=== PATIENT | male | born 1950 | race Caucasian/White ===

== ENCOUNTER 2018-05-25 16:29 | Inpatient (IN) | payer MEDICARE, OTHER ==
[~2018-05-25] VITALS: Ht 172.7 cm; Wt 63.5 kg
[~2018-05-25 16:29] MED LIST: CLINDAMYCIN HC300 MG ORAL; KEFLEX500 MG ORAL; LEVAQUIN500 MG ORAL; METHADONE HCL10 MG PO; METRONIDAZOLE500 MG ORAL; TRAMADOL HCL50 MG ORAL; ULTRAM50 MG ORAL
[2018-05-25 16:40] VITALS: BP 97/58
[2018-05-25] MEDS ORDERED: Tetanus/Diptheria/Pertussis Vaccine 0.5ml Syr IM ONE (17:00)
[2018-05-25] MEDS ORDERED: Vancomycin 1 GM in NS 275 ML IV ONE (17:15)
[2018-05-25 18:08] LABS: ANION GAP 9 mmol/L (5-15); BLOOD UREA NITROGEN 35 mg/dL (7-18); CALCIUM 9.1 MG/DL (8.5-10.1); CARBON DIOXIDE 26 MMOL/L (21-32); CHLORIDE 104 MMOL/L (98-107); CREATININE 1.2 MG/DL (0.55-1.30); POTASSIUM 4.9 MMOL/L (3.5-5.1); SODIUM 139 MMOL/L (136-145)
[2018-05-25 18:13] LABS: ALANINE AMINOTRANSFERASE 20 U/L (12-78); ALBUMIN 2.8 G/DL (3.4-5.0); ALBUMIN/GLOBULIN RATIO 0.6 (1.0-2.7); ALKALINE PHOSPHATASE 78 U/L (46-116); ASPARTATE AMINO TRANSFERASE 23 U/L (15-37); BASOPHILS % (AUTO) 1.8 % (0.0-2.0); BILIRUBIN,TOTAL 0.6 MG/DL (0.2-1.0); EOSINOPHILS % (AUTO) 1.4 % (0.0-3.0); HEMOGLOBIN 13.3 G/DL (14.2-18.0); LYMPHOCYTES % (AUTO) 11.3 % (20.0-45.0); MEAN CORPUSCULAR VOLUME 81 FL (80-99); MONOCYTES % (AUTO) 8.3 % (1.0-10.0); NEUTROPHILS % (AUTO) 77.2 % (45.0-75.0); PLATELET COUNT 146 K/UL (150-450); RED BLOOD COUNT 4.84 M/UL (4.70-6.10); RED CELL DISTRIBUTION WIDTH 11.6 % (11.6-14.8); WHITE BLOOD COUNT 7.7 K/UL (4.8-10.8)
--- NOTE | 2018-05-25 18:47 | Consultation ---
History of Present Illness General Date patient seen: May 25, 2018 Chief Complaint: Skin Rash/Abscess Reason for Consultation: left buttock abscess Present Illness HPI 67 year old male IVDA in a Methadone clinic program presented to ED with worsening left buttock pain. States 3 days ago using Heroin and injected to left buttock. Since worsening pain noted. Came to ED for evaluation. Noted to have large fluctuant painful abscess. surgery called to evaluate and assist with care and management. patient seen, chart reviewed, patient examined. pain. no n/v/f/c. hx of prior abscess years ago requiring I&D. Allergies: Coded Allergies: PENICILLINS (Unverified Adverse Reaction, Severe, 05/02/14) Medication History Scheduled Clindamycin Hcl (Clindamycin Hcl), 300 MG ORAL THREE TIMES A DAY Levofloxacin* (Levaquin*), 500 MG ORAL DAILY, (Reported) Methadone Hcl* (Methadone*), 85 MG PO DAILY, (Reported) Metronidazole* (Flagyl*), 500 MG ORAL EVERY 8 HOURS, (Reported) Scheduled PRN Tramadol Hcl (Ultram*), 50 MG ORAL Q4H PRN for For Pain, (Reported) Tramadol Hcl* (Ultram*), 50 MG ORAL THREE TIMES A DAY PRN for For Pain, ( Reported) Patient History History Provided By: Patient, Medical Record, PMD Healthcare decision maker Resuscitation status Advanced Directive on File Past Medical/Surgical History Past Medical/Surgical History: (1) Abscess of buttock, right (2) Cellulitis and abscess (3) Cellulitis and abscess (4) Muscle spasm of back (5) Cellulitis of thumb (6) Cellulitis and abscess Review of Systems All Other Systems: negative except mentioned in HPI Physical Exam General Appearance: no apparent distress Lines, tubes and drains: peripheral HEENT: atraumatic, mucous membranes moist Neck: normal inspection Respiratory/Chest: normal breath sounds, no respiratory distress, no accessory muscle use Cardiovascular/Chest: normal peripheral pulses, normal rate, regular rhythm Abdomen: normal bowel sounds, non tender, soft, no organomegaly, no mass Extremities: normal range of motion, non-tender, normal inspection Skin Exam: other - large area >15cm x 15cm left buttock lateral abscess with large area of fluctnace and necrosis noted at skin injection site. Neurologic: alert, oriented x 3 Last 24 Hour Vital Signs Date Time Temp Pulse Resp B/P (MAP) Pulse Ox O2 Delivery O2 Flow Rate FiO2 05/25/18 16:40 98.1 48 16 97/58 99 Room Air 05/25/18 16:40 98.1 48 16 97/58 99 Room Air Laboratory Tests Test 05/25/18 17:22 White Blood Count 7.7 K/UL (4.8-10.8) Red Blood Count 4.84 M/UL (4.70-6.10) Hemoglobin 13.3 G/DL (14.2-18.0) L Hematocrit 39.0 % (42.0-52.0) L Mean Corpuscular Volume 81 FL (80-99) Mean Corpuscular Hemoglobin 27.4 PG (27.0-31.0) Mean Corpuscular Hemoglobin Concent 34.1 G/DL (32.0-36.0) Red Cell Distribution Width 11.6 % (11.6-14.8) Platelet Count 146 K/UL (150-450) L Mean Platelet Volume 5.4 FL (6.5-10.1) L Neutrophils (%) (Auto) 77.2 % (45.0-75.0) H Lymphocytes (%) (Auto) 11.3 % (20.0-45.0) L Monocytes (%) (Auto) 8.3 % (1.0-10.0) Eosinophils (%) (Auto) 1.4 % (0.0-3.0) Basophils (%) (Auto) 1.8 % (0.0-2.0) Sodium Level 139 MMOL/L (136-145) Potassium Level 4.9 MMOL/L (3.5-5.1) Chloride Level 104 MMOL/L (98-107) Carbon Dioxide Level 26 MMOL/L (21-32) Anion Gap 9 mmol/L (5-15) Blood Urea Nitrogen 35 mg/dL (7-18) H Creatinine 1.2 MG/DL (0.55-1.30) Estimat Glomerular Filtration Rate > 60 mL/min (>60) Glucose Level 100 MG/DL (74-106) Lactic Acid Level 0.80 mmol/L (0.4-2.0) Calcium Level 9.1 MG/DL (8.5-10.1) Total Bilirubin 0.6 MG/DL (0.2-1.0) Aspartate Amino Transf (AST/SGOT) 23 U/L (15-37) Alanine Aminotransferase (ALT/SGPT) 20 U/L (12-78) Alkaline Phosphatase 78 U/L (46-116) Total Protein 7.6 G/DL (6.4-8.2) Albumin 2.8 G/DL (3.4-5.0) L Globulin 4.8 g/dL Albumin/Globulin Ratio 0.6 (1.0-2.7) L Height (Feet): 5 Height (Inches): 11.00 Weight (Pounds): 140 Medications Current Medications Medications (Trade) Dose Ordered Sig/Rafita Route PRN Reason Start Time Stop Time Status Last Admin Dose Admin Vancomycin HCl 1 gm/Sodium Chloride 275 ml @ 183.3 mls/ hr ONCE ONCE IV 05/25/18 17:15 05/25/18 18:45 05/25/18 18:12 Assessment/Plan Problem List: (1) Left buttock abscess Assessment & Plan: Large left buttock abscess s/p IVDA >15cm area of circumference/fluctuance. area of necrosis at skin injection site. recommend I&D consent obtained see procedure note I&D performed. cultures sent admit for IV abx f/u cultures packing and dressing BID thank you ICD Codes: L02.31 - Cutaneous abscess of buttock SNOMED: [id number] Anthony Gamino May 25, 2018 18:47
[2018-05-25] MEDS ORDERED: Morphine Sulfate 4mg/ml Inj (IV/IM USE ONLY) IVP ONE (20:00)
--- NOTE | 2018-05-25 21:00 | Operative Note - Dictated ---
DATE OF OPERATION: 05/25/2018 PREOPERATIVE DIAGNOSIS: Large left buttock abscess. POSTOPERATIVE DIAGNOSIS: Large deep left buttock abscess. OPERATION PERFORMED: Incision and drainage of deep left buttock abscess. ATTENDING SURGEON: Anthony Gamino M.D. HYDROCHLORIC ACID OPERATOR: None. ANESTHESIOLOGIST: Not applicable. ANESTHESIA: 1% lidocaine with epinephrine. ESTIMATED BLOOD LOSS: Minimal. IV FLUIDS: Not applicable. WOUND CLASSIFICATION: Class III. SPECIMENS: Culture sent. COMPLICATIONS: None. DRAINS: None. DRESSINGS: Packing and dressing. INDICATIONS FOR PROCEDURE: This 67-year-old male, known IVDA, in the methadone clinic who states that approximately 3 days ago, he injected heroin into his left buttock region and since has developed a worsening pain and infection, likely abscess. He has history of such events requiring I and D in the past. He came to the emergency department for evaluation and was noted to have a large area of fluctuance in the left buttock, which was significantly concerning, very tender and therefore, Surgery was called for evaluation at which time the patient was seen and a large abscess was identified and I and D was indicated and recommended. Risks, benefits, and alternatives were discussed with the patient in detail who consented to procedure. OPERATIVE NOTE: The patient was made comfortable at the bedside and turned on the right lateral decubitus position. The left buttock was prepped and draped in standard surgical fashion. Local anesthetic was infiltrated in the proposed incision site, which encompassed the injection site at the area of maximal fluctuance. Once proper anesthetic effect was achieved, a cruciate incision was made and approximately over 150 mL of purulent fluid was evacuated. The abscess was deep down to the muscles and in between the gluteus muscles, intermuscular as well. There was a significant pocket developed by the abscess. Once evacuated, the abscess was irrigated with copious amounts of sterile saline until clear. At this time, gauze packing and dressings were applied. The patient tolerated the procedure well and will be admitted for further care and management. Anthony Gamino M.D. DR: NILDA JOB#: [id number] CC:
[2018-05-25 21:20] VITALS: BP 124/68
--- NOTE | 2018-05-25 22:25 | Emergency Room Report ---
History of Present Illness General Chief Complaint: Skin Rash/Abscess Source: Patient, Medical Record, PMD Present Illness HPI 67-year-old male presents to the emergency department complaining of 10 out of 10 in severity tenderness, swelling, erythema of the day been progressive over the course of 3 days localized to the left buttocks. Patient reports symptoms are at the site of previous heroin injection. He reports history of IV drug use and reports opiate dependence. Patient is currently attending methadone clinic. Patient denies fevers or chills he reports a history of abscess that required drainage in the past. Pt. is not knowledgeable as to when he last received a tetanus vaccination Allergies: Coded Allergies: PENICILLINS (Unverified Adverse Reaction, Severe, 05/02/14) Patient History Past Medical History: see triage record, other - IVDU, Past Surgical History: none Pertinent Family History: none Social History: Reports: drug use - IVDU- Opiates Reviewed Nursing Documentation: PMH: Agreed; PSxH: Agreed Nursing Documentation-PMH Past Medical History: No History, Except For Hx Cancer: No Hx Gastrointestinal Problems: No Hx Neurological Problems: No Review of Systems All Other Systems: negative except mentioned in HPI Physical Exam Vital Signs Date Time Temp Pulse Resp B/P (MAP) Pulse Ox O2 Delivery O2 Flow Rate FiO2 05/25/18 16:40 98.1 48 16 97/58 99 Room Air Sp02 EP Interpretation: reviewed, normal General Appearance: alert, GCS 15, non-toxic, mild distress Eyes: bilateral eye normal inspection, bilateral eye PERRL ENT: hearing grossly normal, normal voice Neck: normal inspection Respiratory: lungs clear, normal breath sounds Cardiovascular #1: normal inspection, regular rate, rhythm Musculoskeletal: gait/station normal Neurologic: oriented x3, responsive, normal gait Psychiatric: judgement/insight normal, mood/affect normal Skin: other - large fluctuant left buttock abscess with associated necrosis noted at skin injection site Lymphatic: no adenopathy Medical Decision Making PA Attestation Dr. Monte is my supervising Physician whom patient management has been discussed with. Diagnostic Impression: Primary Impression: Cellulitis and abscess Additional Impressions: Left buttock abscess Opiate dependence, continuous History of intravenous drug abuse ER Course 67-year-old male presents to the emergency department complaining of 10 out of 10 in severity tenderness, swelling, erythema of the day been progressive over the course of 3 days localized to the left buttocks. Patient reports symptoms are at the site of previous heroin injection. He reports history of IV drug use and reports opiate dependence. Patient is currently attending methadone clinic. Patient denies fevers or chills he reports a history of abscess that required drainage in the past. Pt. is not knowledgeable as to when he last received a tetanus vaccination Ddx considered but are not limited to ST necrosis, cellulitis, abscess, necrotizing fasciitis, insect bite, sepsis just to name a few. Vital signs: are WNL, pt. is afebrile H&PE are most consistent with large left buttock abscess ORDERS: -CBC & CMP: Unremarkable, normal renal function - Blood cultures: Pending -Type and Screen: B Positive - Body Fluid Culture- specimen collected from abscess sent for culture.- pending ED INTERVENTIONS: -Vancomycin 1g IV - Tetanus vaccination is administered. - Surgical Consult- Dr. Gamino for I & D DISPOSITION: at this time pt. will be admitted to Dr. Saunders for left buttock abscess requiring I &D and IV abx. Dr. Saunders agreed to admit the pt. and to continue pt. care management. Labs Test 05/25/18 17:22 White Blood Count 7.7 K/UL (4.8-10.8) Red Blood Count 4.84 M/UL (4.70-6.10) Hemoglobin 13.3 G/DL (14.2-18.0) Hematocrit 39.0 % (42.0-52.0) Mean Corpuscular Volume 81 FL (80-99) Mean Corpuscular Hemoglobin 27.4 PG (27.0-31.0) Mean Corpuscular Hemoglobin Concent 34.1 G/DL (32.0-36.0) Red Cell Distribution Width 11.6 % (11.6-14.8) Platelet Count 146 K/UL (150-450) Mean Platelet Volume 5.4 FL (6.5-10.1) Neutrophils (%) (Auto) 77.2 % (45.0-75.0) Lymphocytes (%) (Auto) 11.3 % (20.0-45.0) Monocytes (%) (Auto) 8.3 % (1.0-10.0) Eosinophils (%) (Auto) 1.4 % (0.0-3.0) Basophils (%) (Auto) 1.8 % (0.0-2.0) Sodium Level 139 MMOL/L (136-145) Potassium Level 4.9 MMOL/L (3.5-5.1) Chloride Level 104 MMOL/L (98-107) Carbon Dioxide Level 26 MMOL/L (21-32) Anion Gap 9 mmol/L (5-15) Blood Urea Nitrogen 35 mg/dL (7-18) Creatinine 1.2 MG/DL (0.55-1.30) Estimat Glomerular Filtration Rate > 60 mL/min (>60) Glucose Level 100 MG/DL (74-106) Lactic Acid Level 0.80 mmol/L (0.4-2.0) Calcium Level 9.1 MG/DL (8.5-10.1) Total Bilirubin 0.6 MG/DL (0.2-1.0) Aspartate Amino Transf (AST/SGOT) 23 U/L (15-37) Alanine Aminotransferase (ALT/SGPT) 20 U/L (12-78) Alkaline Phosphatase 78 U/L (46-116) Total Protein 7.6 G/DL (6.4-8.2) Albumin 2.8 G/DL (3.4-5.0) Globulin 4.8 g/dL Albumin/Globulin Ratio 0.6 (1.0-2.7) Last Vital Signs Date Time Temp Pulse Resp B/P (MAP) Pulse Ox O2 Delivery O2 Flow Rate FiO2 05/25/18 16:40 98.1 48 16 97/58 99 Room Air Disposition: ADMITTED INPATIENT Condition: Serious Physician Consult: Dr. Gamino Referrals: [facility],REFERRING (PCP) Kristina Garcia May 25, 2018 22:25
[2018-05-25] MEDS ORDERED: Milk of Magnesia 30ml Ud ORAL PRN (22:30)
[2018-05-25 23:40] VITALS: BP 129/70
[2018-05-26 04:00] VITALS: BP 91/48
[2018-05-26] MEDS: Vancomycin 750mg/NS 250ml 250 ML IVPB SCH ×2 (05:34→17:33)
[2018-05-26] MEDS ORDERED: metroNIDAZOLE 500mg tab ORAL SCH (06:00)
--- NOTE | 2018-05-26 07:00 | History and Physical Report ---
DATE OF ADMISSION: 05/26/2018 CHIEF COMPLAINT: Left buttock abscess. HISTORY OF PRESENT ILLNESS: This is a 67-year-old male. He has a prior history of heroin use used little over a week ago and developed an abscess in the left buttock. He presented to the emergency room. He was noted to have a large amount of induration and swelling, underwent incision and drainage that revealed 250 mL of pus. It was debrided. He is now admitted for further evaluation and care. PAST MEDICAL HISTORY: History of heroin abuse. PAST SURGICAL HISTORY: None. CURRENT MEDICATIONS: Only methadone. FAMILY HISTORY: Noncontributory. SOCIAL HISTORY: Negative for tobacco or ethanol. The patient has been clean from heroin except for once in the last 4 years. REVIEW OF SYSTEMS: Negative except for left buttock pain. PHYSICAL EXAMINATION: VITAL SIGNS: Temperature 98 degrees, blood pressure 110/70, pulse 80, and respirations 20. GENERAL: The patient is a thin male, in no apparent distress. HEART: Regular. LUNGS: Clear. ABDOMEN: Soft. EXTREMITIES: There is a bandage over the left buttock. There is some induration and swelling noted. LABORATORY DATA: Reviewed. ASSESSMENT: This is a pleasant 67-year-old male with a prior history of heroin abuse admitted with a left buttock abscess for injected heroin. He is now status post incision and drainage. PLAN: Intravenous antibiotics. Follow cultures. Surgery follow up. ID consultation. Quintin Saunders M.D. DR: LÓPEZ JOB#: [id number] CC:
[2018-05-26 08:38] VITALS: BP 105/60
[2018-05-26] MEDS: Heparin 5000 units/ml inj SUBQ SCH ×2 (09:00→20:38)
--- NOTE | 2018-05-26 09:29 | General Surgery Progress Note ---
General Surgery-Progress Note Subjective Additional Comments no acute events. improved. no n/v/f/c. wound dressings changed Objective Last 24 Hour Vital Signs Date Time Temp Pulse Resp B/P (MAP) Pulse Ox O2 Delivery O2 Flow Rate FiO2 05/26/18 08:38 98.1 51 18 105/60 (75) 94 05/26/18 04:00 98.2 48 19 91/48 (62) 97 05/26/18 00:48 Room Air 05/26/18 00:00 98.1 53 16 129/70 96 Room Air 05/25/18 23:40 98.4 53 17 129/70 99 Room Air 05/25/18 21:20 97.9 60 18 124/68 99 Room Air 05/25/18 16:40 98.1 48 16 97/58 99 Room Air 05/25/18 16:40 98.1 48 16 97/58 99 Room Air I&O Intake and Output 05/25/18 05/26/18 18:59 06:59 Intake Total 100 ml Output Total 0 ml Balance 0 ml 100 ml Intake IV Total 100 ml Output Urine Total 0 ml # Voids 1 Dressing: saturated Wound: clean, other Drains: none Cardiovascular: RSR Respiratory: clear Abdomen: soft, flat, non-tender, present bowel sounds Extremities: no tenderness, no cyanosis, other Laboratory Tests Test 05/25/18 17:22 White Blood Count 7.7 K/UL (4.8-10.8) Red Blood Count 4.84 M/UL (4.70-6.10) Hemoglobin 13.3 G/DL (14.2-18.0) L Hematocrit 39.0 % (42.0-52.0) L Mean Corpuscular Volume 81 FL (80-99) Mean Corpuscular Hemoglobin 27.4 PG (27.0-31.0) Mean Corpuscular Hemoglobin Concent 34.1 G/DL (32.0-36.0) Red Cell Distribution Width 11.6 % (11.6-14.8) Platelet Count 146 K/UL (150-450) L Mean Platelet Volume 5.4 FL (6.5-10.1) L Neutrophils (%) (Auto) 77.2 % (45.0-75.0) H Lymphocytes (%) (Auto) 11.3 % (20.0-45.0) L Monocytes (%) (Auto) 8.3 % (1.0-10.0) Eosinophils (%) (Auto) 1.4 % (0.0-3.0) Basophils (%) (Auto) 1.8 % (0.0-2.0) Sodium Level 139 MMOL/L (136-145) Potassium Level 4.9 MMOL/L (3.5-5.1) Chloride Level 104 MMOL/L (98-107) Carbon Dioxide Level 26 MMOL/L (21-32) Anion Gap 9 mmol/L (5-15) Blood Urea Nitrogen 35 mg/dL (7-18) H Creatinine 1.2 MG/DL (0.55-1.30) Estimat Glomerular Filtration Rate > 60 mL/min (>60) Glucose Level 100 MG/DL (74-106) Lactic Acid Level 0.80 mmol/L (0.4-2.0) Calcium Level 9.1 MG/DL (8.5-10.1) Total Bilirubin 0.6 MG/DL (0.2-1.0) Aspartate Amino Transf (AST/SGOT) 23 U/L (15-37) Alanine Aminotransferase (ALT/SGPT) 20 U/L (12-78) Alkaline Phosphatase 78 U/L (46-116) Total Protein 7.6 G/DL (6.4-8.2) Albumin 2.8 G/DL (3.4-5.0) L Globulin 4.8 g/dL Albumin/Globulin Ratio 0.6 (1.0-2.7) L Plan Problems: (1) Left buttock abscess Assessment & Plan: Large left buttock abscess s/p IVDA >15cm area of circumference/fluctuance. area of necrosis at skin injection site. s/p I&D see report diet as tolerated pain management IV abx f/u cultures packing and dressing BID thank you Anthony Gamino May 26, 2018 09:29
[2018-05-26 12:00] VITALS: BP_SYST 109; BP_SYST 159; BP_DIAS 64
[2018-05-26] MEDS ORDERED: Tubing IV Secondary IV ONE (13:12)
[2018-05-26] MEDS ORDERED: NS 275ml ONE (13:12)
--- NOTE | 2018-05-26 14:59 | Cardiology Report ---
APPROVED REPORT EKG Measurement Heart [id number] DC [id number] Sinus bradycardia Otherwise normal ECG
[2018-05-26 15:47] VITALS: BP 118/70
[2018-05-26 20:00] VITALS: BP 109/59
[2018-05-27] VITALS: BP 131/72
[2018-05-27 04:00] VITALS: BP 116/59
[2018-05-27 04:55] LABS: BASOPHILS % (AUTO) 1.2 % (0.0-2.0); EOSINOPHILS % (AUTO) 2.5 % (0.0-3.0); HEMATOCRIT 41.1 % (42.0-52.0); LYMPHOCYTES % (AUTO) 22.9 % (20.0-45.0); MEAN CORPUSCULAR VOLUME 80 FL (80-99); MONOCYTES % (AUTO) 9.1 % (1.0-10.0); NEUTROPHILS % (AUTO) 64.2 % (45.0-75.0); PLATELET COUNT 178 K/UL (150-450); RED BLOOD COUNT 5.14 M/UL (4.70-6.10); WHITE BLOOD COUNT 5.4 K/UL (4.8-10.8)
[2018-05-27 05:11] LABS: ANION GAP 6 mmol/L (5-15); BLOOD UREA NITROGEN 22 mg/dL (7-18); CALCIUM 8.9 MG/DL (8.5-10.1); CARBON DIOXIDE 27 MMOL/L (21-32); CHLORIDE 105 MMOL/L (98-107); POTASSIUM 4.3 MMOL/L (3.5-5.1); SODIUM 138 MMOL/L (136-145)
[2018-05-27] MEDS: Vancomycin 750mg/NS 250ml 250 ML IVPB SCH ×2 (06:06→16:43)
[2018-05-27 08:00] VITALS: BP 107/67
--- NOTE | 2018-05-27 08:40 | General Progress Note ---
Assessment/Plan Problem List: (1) Cellulitis and abscess ICD Codes: L03.90 - Cellulitis, unspecified SNOMED: 45661703 (2) Abscess of buttock, right ICD Codes: L03.317 - Cellulitis of buttock SNOMED: 90816774 Status: stable Assessment/Plan abx follow up cultures pain rx id eval pending Subjective ROS Limited/Unobtainable: No Constitutional: Reports: malaise, weakness HEENT: Reports: no symptoms Cardiovascular: Reports: no symptoms Respiratory: Reports: no symptoms Gastrointestinal/Abdominal: Reports: no symptoms Genitourinary: Reports: no symptoms Neurologic/Psychiatric: Reports: no symptoms Endocrine: Reports: no symptoms Hematologic/Lymphatic: Reports: no symptoms Allergies: Coded Allergies: PENICILLINS (Unverified Adverse Reaction, Severe, 05/02/14) All Systems: reviewed and negative except above Subjective stable. no events. pain controlled. cultured with GPC Objective Last 24 Hour Vital Signs Date Time Temp Pulse Resp B/P (MAP) Pulse Ox O2 Delivery O2 Flow Rate FiO2 05/27/18 08:00 97.9 54 18 107/67 (80) 95 05/27/18 04:00 97.7 48 20 116/59 (78) 98 05/27/18 00:00 97.7 46 18 131/72 (91) 95 05/26/18 21:00 Room Air 05/26/18 20:00 98.1 52 18 109/59 (76) 96 05/26/18 15:47 98.1 51 18 118/70 (86) 94 05/26/18 12:00 98.4 54 18 159/64 (95) 94 05/26/18 12:00 98.4 54 18 109/64 (79) 97 05/26/18 09:00 Room Air Intake and Output 05/26/18 05/27/18 18:59 06:59 Intake Total 867 ml 403 ml Output Total 800 ml 275 ml Balance 67 ml 128 ml Intake Oral 600 ml 120 ml IV Total 267 ml 283 ml Output Urine Total 800 ml 275 ml # Voids 1 # Bowel Movements 1 Laboratory Tests 05/27/18 04:30: White Blood Count 5.4, Red Blood Count 5.14, Hemoglobin 14.0L, Hematocrit 41.1L , Mean Corpuscular Volume 80, Mean Corpuscular Hemoglobin 27.1, Mean Corpuscular Hemoglobin Concent 34.0, Red Cell Distribution Width 12.0, Platelet Count 178, Mean Platelet Volume 5.9L, Neutrophils (%) (Auto) 64.2, Lymphocytes ( %) (Auto) 22.9, Monocytes (%) (Auto) 9.1, Eosinophils (%) (Auto) 2.5, Basophils (%) (Auto) 1.2, Sodium Level 138, Potassium Level 4.3, Chloride Level 105, Carbon Dioxide Level 27, Anion Gap 6, Blood Urea Nitrogen 22H, Creatinine 1.0, Estimat Glomerular Filtration Rate > 60, Glucose Level 93, Calcium Level 8.9, Vancomycin Level Trough 11.8 Height (Feet): 5 Height (Inches): 8.00 Weight (Pounds): 140 General Appearance: WD/WN Neck: supple Cardiovascular: regular rhythm Respiratory/Chest: lungs clear Abdomen: normal bowel sounds, non tender, soft, no organomegaly Edema: no edema noted Arm (L), no edema noted Arm (R), no edema noted Leg (L), no edema noted Leg (R), no edema noted Pedal (L), no edema noted Pedal (R), no edema noted Generalized Quintin Saunders MD May 27, 2018 08:40
[2018-05-27] MEDS ORDERED: Tubing IV Secondary IV ONE (08:44)
[2018-05-27] MEDS: Heparin 5000 units/ml inj SUBQ SCH ×2 (08:46→21:00)
--- NOTE | 2018-05-27 11:34 | Infectious Diseases Prog Note ---
Assessment/Plan Assessment/Plan Full consult to follow: A) 1) left buttock abscess 2) s/p I/D 3) pmh noted 4) allergies - pcn P) 1) vancomycin, ciprofloxacin 2) check surgical culture 3) monitor labs 4) thank you Subjective Allergies: Coded Allergies: PENICILLINS (Unverified Adverse Reaction, Severe, 05/02/14) Objective Vital Signs Last 24 Hour Vital Signs Date Time Temp Pulse Resp B/P (MAP) Pulse Ox O2 Delivery O2 Flow Rate FiO2 05/27/18 09:00 Room Air 05/27/18 08:00 97.9 54 18 107/67 (80) 95 05/27/18 04:00 97.7 48 20 116/59 (78) 98 05/27/18 00:00 97.7 46 18 131/72 (91) 95 05/26/18 21:00 Room Air 05/26/18 20:00 98.1 52 18 109/59 (76) 96 05/26/18 15:47 98.1 51 18 118/70 (86) 94 05/26/18 12:00 98.4 54 18 159/64 (95) 94 05/26/18 12:00 98.4 54 18 109/64 (79) 97 Height (Feet): 5 Height (Inches): 8.00 Weight (Pounds): 140 Microbiology Date/Time Source Procedure Growth Status 05/25/18 17:27 Blood Blood Culture - Preliminary NO GROWTH AFTER 24 HOURS Resulted 05/25/18 17:15 Blood Blood Culture - Preliminary NO GROWTH AFTER 24 HOURS Resulted 05/25/18 18:00 Body Fluid Abscess Gram Stain - Final Resulted 05/25/18 18:00 Body Fluid Abscess Body Fluid Culture Pending Resulted Laboratory Tests Test 05/27/18 04:30 White Blood Count 5.4 K/UL (4.8-10.8) Red Blood Count 5.14 M/UL (4.70-6.10) Hemoglobin 14.0 G/DL (14.2-18.0) L Hematocrit 41.1 % (42.0-52.0) L Mean Corpuscular Volume 80 FL (80-99) Mean Corpuscular Hemoglobin 27.1 PG (27.0-31.0) Mean Corpuscular Hemoglobin Concent 34.0 G/DL (32.0-36.0) Red Cell Distribution Width 12.0 % (11.6-14.8) Platelet Count 178 K/UL (150-450) Mean Platelet Volume 5.9 FL (6.5-10.1) L Neutrophils (%) (Auto) 64.2 % (45.0-75.0) Lymphocytes (%) (Auto) 22.9 % (20.0-45.0) Monocytes (%) (Auto) 9.1 % (1.0-10.0) Eosinophils (%) (Auto) 2.5 % (0.0-3.0) Basophils (%) (Auto) 1.2 % (0.0-2.0) Sodium Level 138 MMOL/L (136-145) Potassium Level 4.3 MMOL/L (3.5-5.1) Chloride Level 105 MMOL/L (98-107) Carbon Dioxide Level 27 MMOL/L (21-32) Anion Gap 6 mmol/L (5-15) Blood Urea Nitrogen 22 mg/dL (7-18) H Creatinine 1.0 MG/DL (0.55-1.30) Estimat Glomerular Filtration Rate > 60 mL/min (>60) Glucose Level 93 MG/DL (74-106) Calcium Level 8.9 MG/DL (8.5-10.1) Vancomycin Level Trough 11.8 ug/mL (5.0-12.0) Current Medications Medications (Trade) Dose Ordered Sig/Rafita Route PRN Reason Start Time Stop Time Status Last Admin Dose Admin Acetaminophen (Tylenol) 650 mg Q4H PRN ORAL Mild Pain/Temp > 100.5 05/25/18 22:30 06/24/18 22:29 05/25/18 22:56 Heparin Sodium (Porcine) (Heparin 5000 units/ml) 5,000 units EVERY 12 HOURS SUBQ 05/26/18 09:00 06/25/18 08:59 05/26/18 20:38 Hydromorphone HCl (Dilaudid) 2 mg Q4H PRN IVP Severe Pain (Pain Scale 7-10) 05/25/18 22:30 06/01/18 22:29 05/27/18 04:09 Magnesium Hydroxide (Mom) 30 ml DAILYPRN PRN ORAL Constipation 05/25/18 22:30 06/24/18 22:29 Methadone HCl (Methadone HCl) 80 mg DAILY ORAL 05/27/18 12:00 06/03/18 11:59 Metronidazole 100 ml @ 100 mls/hr Q8H IVPB 05/26/18 02:00 06/02/18 01:59 05/27/18 08:46 Ondansetron HCl (Zofran) 4 mg Q6H PRN IVP Nausea & Vomiting 05/25/18 22:30 06/24/18 22:29 05/25/18 22:57 Vancomycin HCl (Vanco rx to dose) 1 ea DAILY PRN MISC Per rx protocol 05/25/18 22:30 06/24/18 22:29 Vancomycin/Sodium Chloride 250 ml @ 167 mls/hr Q12H IVPB 05/26/18 05:00 05/31/18 04:59 05/27/18 06:06 Philip Okeefe MD May 27, 2018 11:34
[2018-05-27 12:00] VITALS: BP 119/70
--- NOTE | 2018-05-27 12:35 | General Progress Note ---
Progress Note Progress Note Surgery: doing well.. improving. no n/v/f/c. labs okay wound improving. edema improved. packing and dressings changed -cont with BID packing and dressing -d/c planning will need home wound care thank you Anthony Gamino May 27, 2018 12:35
[2018-05-27 16:00] VITALS: BP 124/72
[2018-05-27 20:00] VITALS: BP 134/73
[2018-05-28] VITALS: BP 133/76
[2018-05-28 04:00] VITALS: BP 125/86
[2018-05-28] MEDS: Vancomycin 750mg/NS 250ml 250 ML IVPB SCH ×2 (06:05→16:52)
[2018-05-28] MEDS: HYDROmorphone 4mg tab ORAL PRN (07:50)
[2018-05-28 08:00] VITALS: BP 136/75
--- NOTE | 2018-05-28 08:18 | General Progress Note ---
Assessment/Plan Problem List: (1) Cellulitis and abscess ICD Codes: L03.90 - Cellulitis, unspecified SNOMED: 22869341 (2) Abscess of buttock, right ICD Codes: L03.317 - Cellulitis of buttock SNOMED: 66260103 Status: stable Assessment/Plan abx follow up cultures pain rx id eval appreciated Subjective ROS Limited/Unobtainable: No Constitutional: Reports: malaise, weakness HEENT: Reports: no symptoms Cardiovascular: Reports: no symptoms Respiratory: Reports: no symptoms Gastrointestinal/Abdominal: Reports: no symptoms Genitourinary: Reports: no symptoms Neurologic/Psychiatric: Reports: no symptoms Endocrine: Reports: no symptoms Hematologic/Lymphatic: Reports: no symptoms Allergies: Coded Allergies: PENICILLINS (Unverified Adverse Reaction, Severe, 05/02/14) All Systems: reviewed and negative except above Subjective stable. no events. pain controlled. cultured with staph aureus Objective Last 24 Hour Vital Signs Date Time Temp Pulse Resp B/P (MAP) Pulse Ox O2 Delivery O2 Flow Rate FiO2 05/28/18 04:00 98.3 50 20 125/86 (99) 93 05/28/18 00:00 99.1 50 20 133/76 (95) 93 05/27/18 21:00 Room Air 05/27/18 20:00 99.1 54 19 134/73 (93) 100 05/27/18 16:00 98.1 81 16 124/72 (89) 99 05/27/18 12:00 97.9 46 16 119/70 (86) 97 05/27/18 09:00 Room Air Intake and Output 05/27/18 05/28/18 19:00 07:00 Intake Total 1450 ml 200 ml Output Total 350 ml 1150 ml Balance 1100 ml -950 ml IV Total 800 ml 200 ml Other 650 ml Output Urine Total 350 ml 1150 ml # Voids 4 Height (Feet): 5 Height (Inches): 8.00 Weight (Pounds): 140 Objective General Appearance: WD/WN Neck: supple Cardiovascular: regular rhythm Respiratory/Chest: lungs clear Abdomen: normal bowel sounds, non tender, soft, no organomegaly Edema: no edema noted Arm (L), no edema noted Arm (R), no edema noted Leg (L), no edema noted Leg (R), no edema noted Pedal (L), no edema noted Pedal (R), no edema noted Generalized Quintin Saunders MD May 28, 2018 08:18
[2018-05-28] MEDS: Heparin 5000 units/ml inj SUBQ SCH ×2 (08:49→20:28)
[2018-05-28 11:25] LABS: BASOPHILS % (AUTO) 1.4 % (0.0-2.0); EOSINOPHILS % (AUTO) 4.6 % (0.0-3.0); HEMATOCRIT 36.3 % (42.0-52.0); HEMOGLOBIN 12.8 G/DL (14.2-18.0); LYMPHOCYTES % (AUTO) 15.5 % (20.0-45.0); MEAN CORPUSCULAR VOLUME 78 FL (80-99); MONOCYTES % (AUTO) 10.7 % (1.0-10.0); NEUTROPHILS % (AUTO) 67.8 % (45.0-75.0); PLATELET COUNT 178 K/UL (150-450); RED BLOOD COUNT 4.62 M/UL (4.70-6.10); RED CELL DISTRIBUTION WIDTH 11.2 % (11.6-14.8)
[2018-05-28 11:48] LABS: ANION GAP 5 mmol/L (5-15); BLOOD UREA NITROGEN 15 mg/dL (7-18); CALCIUM 8.6 MG/DL (8.5-10.1); CARBON DIOXIDE 28 MMOL/L (21-32); CHLORIDE 103 MMOL/L (98-107); POTASSIUM 3.8 MMOL/L (3.5-5.1); SODIUM 136 MMOL/L (136-145)
[2018-05-28 12:00] VITALS: BP 123/80
--- NOTE | 2018-05-28 12:48 | Infectious Diseases Prog Note ---
Assessment/Plan Assessment/Plan Full consult dictated: A) 1) mrsa left buttock abscess 2) s/p I/D 3) pmh noted 4) allergies - pcn P) 1) vancomycin 2) surgery f/u 3) monitor labs 4) will f/u Subjective Allergies: Coded Allergies: PENICILLINS (Unverified Adverse Reaction, Severe, 05/02/14) Objective Vital Signs Last 24 Hour Vital Signs Date Time Temp Pulse Resp B/P (MAP) Pulse Ox O2 Delivery O2 Flow Rate FiO2 05/28/18 09:00 Room Air 05/28/18 08:00 98.4 45 19 136/75 (95) 97 05/28/18 04:00 98.3 50 20 125/86 (99) 93 05/28/18 00:00 99.1 50 20 133/76 (95) 93 05/27/18 21:00 Room Air 05/27/18 20:00 99.1 54 19 134/73 (93) 100 05/27/18 16:00 98.1 81 16 124/72 (89) 99 Height (Feet): 5 Height (Inches): 8.00 Weight (Pounds): 140 Microbiology Date/Time Source Procedure Growth Status 05/25/18 17:27 Blood Blood Culture - Preliminary NO GROWTH AFTER 48 HOURS Resulted 05/25/18 17:15 Blood Blood Culture - Preliminary NO GROWTH AFTER 48 HOURS Resulted 05/25/18 18:00 Body Fluid Abscess Gram Stain - Final Complete 05/25/18 18:00 Body Fluid Culture - Final Staphylococcus Aureus - Mrsa Complete Laboratory Tests Test 05/28/18 10:00 White Blood Count 5.0 K/UL (4.8-10.8) Red Blood Count 4.62 M/UL (4.70-6.10) L Hemoglobin 12.8 G/DL (14.2-18.0) L Hematocrit 36.3 % (42.0-52.0) L Mean Corpuscular Volume 78 FL (80-99) L Mean Corpuscular Hemoglobin 27.7 PG (27.0-31.0) Mean Corpuscular Hemoglobin Concent 35.3 G/DL (32.0-36.0) Red Cell Distribution Width 11.2 % (11.6-14.8) L Platelet Count 178 K/UL (150-450) Mean Platelet Volume 5.1 FL (6.5-10.1) L Neutrophils (%) (Auto) 67.8 % (45.0-75.0) Lymphocytes (%) (Auto) 15.5 % (20.0-45.0) L Monocytes (%) (Auto) 10.7 % (1.0-10.0) H Eosinophils (%) (Auto) 4.6 % (0.0-3.0) H Basophils (%) (Auto) 1.4 % (0.0-2.0) Sodium Level 136 MMOL/L (136-145) Potassium Level 3.8 MMOL/L (3.5-5.1) Chloride Level 103 MMOL/L (98-107) Carbon Dioxide Level 28 MMOL/L (21-32) Anion Gap 5 mmol/L (5-15) Blood Urea Nitrogen 15 mg/dL (7-18) Creatinine 1.0 MG/DL (0.55-1.30) Estimat Glomerular Filtration Rate > 60 mL/min (>60) Glucose Level 126 MG/DL (74-106) H Calcium Level 8.6 MG/DL (8.5-10.1) Current Medications Medications (Trade) Dose Ordered Sig/Rafita Route PRN Reason Start Time Stop Time Status Last Admin Dose Admin Acetaminophen (Tylenol) 650 mg Q4H PRN ORAL Mild Pain/Temp > 100.5 05/25/18 22:30 06/24/18 22:29 05/25/18 22:56 Ciprofloxacin 200 ml @ 200 mls/hr Q12HR IV 05/27/18 15:00 06/03/18 14:59 05/28/18 08:45 Heparin Sodium (Porcine) (Heparin 5000 units/ml) 5,000 units EVERY 12 HOURS SUBQ 05/26/18 09:00 06/25/18 08:59 05/28/18 08:49 Hydromorphone HCl (Dilaudid) 2 mg Q4H PRN IVP Severe Pain (Pain Scale 7-10) 05/25/18 22:30 06/01/18 22:29 05/28/18 11:14 Hydromorphone HCl (Dilaudid) 2 mg Q4H PRN ORAL Severe Breakthru Pain (>7) 05/28/18 06:45 06/04/18 06:44 05/28/18 07:50 Magnesium Hydroxide (Mom) 30 ml DAILYPRN PRN ORAL Constipation 05/25/18 22:30 06/24/18 22:29 Methadone HCl (Methadone HCl) 80 mg DAILY ORAL 05/27/18 12:00 06/03/18 11:59 05/28/18 08:46 Metronidazole 100 ml @ 100 mls/hr Q8H IVPB 05/26/18 02:00 06/02/18 01:59 05/28/18 11:37 Ondansetron HCl (Zofran) 4 mg Q6H PRN IVP Nausea & Vomiting 05/25/18 22:30 06/24/18 22:29 05/25/18 22:57 Vancomycin HCl (Vanco rx to dose) 1 ea DAILY PRN MISC Per rx protocol 05/25/18 22:30 06/24/18 22:29 Vancomycin/Sodium Chloride 250 ml @ 167 mls/hr Q12H IVPB 05/26/18 05:00 05/31/18 04:59 05/28/18 06:05 Philip Okeefe MD May 28, 2018 12:48
[2018-05-28 16:00] VITALS: BP 131/75
--- NOTE | 2018-05-28 19:46 | General Progress Note ---
Progress Note Progress Note Surgery: doing well.. improving. no n/v/f/c. labs okay wound improving. packing and dressings changed Cultures MRSA -cont with BID packing and dressing -d/c planning -okay to d/c from surgical standpoint will need home wound care thank you Anthony Gamino May 28, 2018 19:46
[2018-05-28 20:00] VITALS: BP 134/79
--- NOTE | 2018-05-28 21:15 | Consultation ---
DATE OF CONSULTATION: 05/28/2018 INFECTIOUS DISEASE CONSULTATION CONSULTING PHYSICIAN: Philip Okeefe M.D. REFERRING PHYSICIAN: Quintin Saunders M.D, REASON FOR CONSULTATION: MRSA left buttock abscess and cellulitis. CHIEF COMPLAINT: His chief complaint coming in to the hospital is soft-tissue abscess. HISTORY OF PRESENT ILLNESS: This is a very pleasant 67-year-old male, who comes in to [facility] and was noted to have a large left buttock abscess. The patient was seen by surgery and had an incision and drainage of the left buttock abscess on 05/25/2018. Culture from the surgery grown MRSA. Infectious Disease consultation has been requested for antibiotic management. The patient was placed on vancomycin, it was day #3 of postoperative antibiotics. The patient was on Cipro and Flagyl, they discontinued also. MAR was noted. Orders were noted. Notes were reviewed. PAST MEDICAL HISTORY: The patient's past medical history includes the history of the following. The patient has a past medical history of heroin abuse in the past, looks like he has been on methadone. He does not have a history of diabetes or hypertension. He does have history of IV drug abuse. No history of diabetes, hypertension, or congestive heart failure. MEDICATIONS: Upon reviewing the MAR, he is on the following medications. He is on Dilaudid and methadone. He is on heparin and vancomycin. He was on Cipro and Flagyl that was discontinued. He is on hydromorphone, Zofran, magnesium hydroxide, and acetaminophen. Outside medications include methadone. ALLERGIES: Include penicillin. SOCIAL HISTORY: Positive for heroin abuse and intravenous drug use. No history of smoking or alcohol. FAMILY HISTORY: Noncontributory. Negative for diabetes or cancer. REVIEW OF SYSTEMS: CONSTITUTIONAL: No central line or Cortez. He has generalized fatigue and weakness. No focal weakness. Alert and responsive. HEAD AND NECK: No head pain or neck pain. CARDIAC: No chest pain. GASTROINTESTINAL: No diarrhea. No nausea or vomiting. No abdominal pain. PULMONARY: No congestion or short of breath. SKIN: No rashes. EXTREMITY: No extremity pain. NEUROLOGIC: No seizures. He did have left buttock pain. No fever, chills, night sweats, weight loss, hemoptysis, secretions, thrush, or dysphagia. PHYSICAL EXAMINATION: VITAL SIGNS: Temperature is 99.5, pulse rate 51, respiratory rate 20, blood pressure 123/80, and saturation 97%. GENERAL: The patient is alert and responsive and oriented x3. HEAD AND NECK: Oral exam, no thrush. Eye exam, no icterus. Neck is supple. No JVD. Normocephalic. LUNGS: Clear bilaterally. No rhonchi or rales. HEART: Regular. No gallop or murmur. ABDOMEN: Soft. Positive bowel sounds. Nontender. SKIN: No rash. MUSCULOSKELETAL: No effusion. Legs are without cellulitis. PERIPHERAL VASCULAR: No cyanosis or gangrene. GENITOURINARY: No Cortez. LINE SITES: Without phlebitis. NEUROLOGIC: Generalized weakness and responsive. Alert and oriented x3. EXTREMITIES: His left buttock area is packed postsurgically. Initial pictures were reviewed. was seen post incision and drainage looks clean with good granulation. Initially, per the reports, it had induration and swelling and an abscess. LABORATORY AND DIAGNOSTIC DATA: Laboratory data is as follows. Cultures, blood culture is negative. Surgical culture from 05/25/2018 from incision and drainage grew out MRSA. The MRSA was sensitive to vancomycin, Bactrim, and tetracycline. White count 5.0 and hemoglobin 12.8. Creatinine is 1.0. LFTs were noted. IMAGING STUDIES: There were no imaging studies. ASSESSMENT AND PLAN: 1. The patient has methicillin-resistive Staphylococcus aureus left buttock abscess and cellulitis. The patient is status post incision and drainage. A day #3 of vancomycin postoperatively. Continue vancomycin for methicillin-resistant Staphylococcus aureus left buttock abscess status post incision and drainage. Consider oral antibiotics soon if cleared by surgery and can give Bactrim 1 double-strength tablet p.o. b.i.d. for another week or doxycycline 100 mg p.o. b.i.d. for another week upon discharge. Continue vancomycin IV for now. 2. History of methadone use. 3. History of heroin use. 4. History of intravenous drug abuse. 5. No history of diabetes, hypertension, cancer, or cardiac disease. 6. Allergy to penicillin. 7. Socially positive for heroin use. 8. Family history is noncontributory. 9. MAR was noted. 10. Case was discussed with RN. 11. Continue treatment per primary consultants. 12. Notes and records were noted. 13. Orders were entered. Philip Okeefe M.D. DR: YAEL JOB#: [id number] CC:
[2018-05-29] VITALS: BP 132/72
[2018-05-29] MEDS: HYDROmorphone 4mg tab ORAL PRN ×2 (00:22→06:38)
[2018-05-29 04:00] VITALS: BP 116/75
[2018-05-29] MEDS: Vancomycin 750mg/NS 250ml 250 ML IVPB SCH (05:00)
[2018-05-29 07:54] LABS: BASOPHILS % (AUTO) 0.8 % (0.0-2.0); EOSINOPHILS % (AUTO) 4.7 % (0.0-3.0); HEMATOCRIT 40.1 % (42.0-52.0); HEMOGLOBIN 13.9 G/DL (14.2-18.0); LYMPHOCYTES % (AUTO) 18.7 % (20.0-45.0); MEAN CORPUSCULAR VOLUME 78 FL (80-99); MONOCYTES % (AUTO) 7.1 % (1.0-10.0); NEUTROPHILS % (AUTO) 68.7 % (45.0-75.0); PLATELET COUNT 189 K/UL (150-450); RED BLOOD COUNT 5.12 M/UL (4.70-6.10); RED CELL DISTRIBUTION WIDTH 11.3 % (11.6-14.8); WHITE BLOOD COUNT 5.3 K/UL (4.8-10.8)
[2018-05-29 08:00] VITALS: BP 134/67
[2018-05-29 08:12] LABS: ANION GAP 6 mmol/L (5-15); BLOOD UREA NITROGEN 16 mg/dL (7-18); CALCIUM 9.1 MG/DL (8.5-10.1); CARBON DIOXIDE 29 MMOL/L (21-32); CHLORIDE 103 MMOL/L (98-107); CREATININE 1.1 MG/DL (0.55-1.30); SODIUM 138 MMOL/L (136-145)
[2018-05-29] MEDS ORDERED: HYDROmorphone ORAL (08:52)
[2018-05-29] MEDS ORDERED: BACTRIM-DS1 EA ORAL (08:52)
[2018-05-29] MEDS: Heparin 5000 units/ml inj SUBQ SCH (09:00)
--- NOTE | 2018-05-29 11:37 | Infectious Diseases Prog Note ---
Assessment/Plan Assessment/Plan ASSESSMENT AND PLAN: 1. MRSA left buttock abscess and cellulitis - s/p I/D - on vancomycin iv - clinically stable - can discharge on po bactrim or doxycycline x 1 week 2. History of methadone use. 3. History of heroin use. 4. History of intravenous drug abuse. 5. No history of diabetes, hypertension, cancer, or cardiac disease. 6. Allergy to penicillin. 7. Socially positive for heroin use. 8. Family history is noncontributory. 9. MAR was noted. 10. Case was discussed with RN. 11. Continue treatment per primary consultants. 12. Notes and records were noted. 13. Orders were entered. Subjective Constitutional: Denies: fever HEENT: Denies: congestion Respiratory: Denies: shortness of breath Cardiovascular: Denies: chest pain Gastrointestinal/Abdominal: Denies: nausea, vomiting, diarrhea Genitourinary: Denies: dysuria, hematuria Neurologic: Denies: headache, numbness Psychiatric: Denies: depression Skin: Denies: rash Hematologic: Denies: bleeding Musculoskeletal: Denies: pain Allergies: Coded Allergies: PENICILLINS (Unverified Adverse Reaction, Severe, 05/02/14) Objective Vital Signs Last 24 Hour Vital Signs Date Time Temp Pulse Resp B/P (MAP) Pulse Ox O2 Delivery O2 Flow Rate FiO2 05/29/18 04:00 97.7 54 18 116/75 (89) 98 05/29/18 00:00 97.9 52 18 132/72 (92) 100 05/28/18 21:00 Room Air 05/28/18 20:00 97.7 58 18 134/79 (97) 96 05/28/18 16:00 97.4 44 20 131/75 (93) 97 05/28/18 12:00 99.5 51 20 123/80 (94) 97 Height (Feet): 5 Height (Inches): 8.00 Weight (Pounds): 140 General Appearance: no acute distress HEENT: normocephalic, atraumatic, anicteric, mucous membranes moist Respiratory/Chest: lungs clear, normal breath sounds, no respiratory distress, no accessory muscle use Cardiovascular: no gallop/murmur Abdomen: no organomegaly, non distended Genitourinary: other - no croft Extremities: no cyanosis Skin: no rash Neurologic/Psychiatric: rubber and pounder II-XII grossly normal, abnormal gait, alert, oriented x 3, responsive Lymphatic: no neck adenopathy Musculoskeletal: no effusion Objective none Microbiology Date/Time Source Procedure Growth Status 05/25/18 17:27 Blood Blood Culture - Preliminary NO GROWTH AFTER 72 HOURS Resulted 05/25/18 18:00 Body Fluid Abscess Gram Stain - Final Complete 05/25/18 18:00 Body Fluid Culture - Final Staphylococcus Aureus - Mrsa Complete Laboratory Tests Test 05/29/18 06:25 White Blood Count 5.3 K/UL (4.8-10.8) Red Blood Count 5.12 M/UL (4.70-6.10) Hemoglobin 13.9 G/DL (14.2-18.0) L Hematocrit 40.1 % (42.0-52.0) L Mean Corpuscular Volume 78 FL (80-99) L Mean Corpuscular Hemoglobin 27.2 PG (27.0-31.0) Mean Corpuscular Hemoglobin Concent 34.7 G/DL (32.0-36.0) Red Cell Distribution Width 11.3 % (11.6-14.8) L Platelet Count 189 K/UL (150-450) Mean Platelet Volume 5.3 FL (6.5-10.1) L Neutrophils (%) (Auto) 68.7 % (45.0-75.0) Lymphocytes (%) (Auto) 18.7 % (20.0-45.0) L Monocytes (%) (Auto) 7.1 % (1.0-10.0) Eosinophils (%) (Auto) 4.7 % (0.0-3.0) H Basophils (%) (Auto) 0.8 % (0.0-2.0) Sodium Level 138 MMOL/L (136-145) Potassium Level 4.0 MMOL/L (3.5-5.1) Chloride Level 103 MMOL/L (98-107) Carbon Dioxide Level 29 MMOL/L (21-32) Anion Gap 6 mmol/L (5-15) Blood Urea Nitrogen 16 mg/dL (7-18) Creatinine 1.1 MG/DL (0.55-1.30) Estimat Glomerular Filtration Rate > 60 mL/min (>60) Glucose Level 90 MG/DL (74-106) Calcium Level 9.1 MG/DL (8.5-10.1) Current Medications Medications (Trade) Dose Ordered Sig/Rafita Route PRN Reason Start Time Stop Time Status Last Admin Dose Admin Acetaminophen (Tylenol) 650 mg Q4H PRN ORAL Mild Pain/Temp > 100.5 05/25/18 22:30 06/24/18 22:29 05/25/18 22:56 Heparin Sodium (Porcine) (Heparin 5000 units/ml) 5,000 units EVERY 12 HOURS SUBQ 05/26/18 09:00 06/25/18 08:59 05/28/18 20:28 Hydromorphone HCl (Dilaudid) 2 mg Q4H PRN IVP Severe Pain (Pain Scale 7-10) 05/25/18 22:30 06/01/18 22:29 05/28/18 20:25 Hydromorphone HCl (Dilaudid) 2 mg Q4H PRN ORAL Severe Breakthru Pain (>7) 05/28/18 06:45 06/04/18 06:44 05/29/18 06:38 Magnesium Hydroxide (Mom) 30 ml DAILYPRN PRN ORAL Constipation 05/25/18 22:30 06/24/18 22:29 Methadone HCl (Methadone HCl) 80 mg DAILY ORAL 05/27/18 12:00 06/03/18 11:59 05/29/18 09:40 Ondansetron HCl (Zofran) 4 mg Q6H PRN IVP Nausea & Vomiting 05/25/18 22:30 06/24/18 22:29 05/25/18 22:57 Vancomycin HCl (Vanco rx to dose) 1 ea DAILY PRN MISC Per rx protocol 05/25/18 22:30 06/24/18 22:29 Vancomycin/Sodium Chloride 250 ml @ 167 mls/hr Q12H IVPB 05/26/18 05:00 05/31/18 04:59 05/28/18 16:52 Philip Okeefe MD May 29, 2018 11:37
[2018-05-29] MEDS ORDERED: Tubing IV Secondary IV ONE (12:14)
--- NOTE | 2018-05-31 08:59 | Discharge Summary ---
Discharge Summary Discharge Summary _ DATE OF ADMISSION: 05/25/2018 DATE OF DISCHARGE: 05/29/2018 REASON FOR ADMISSION: 67 years old male with history of intravenous drug abuse , presented to to emergency room due to severe buttock pain. he admitted to inject heroin to his left buttock. Patient was diagnosed with left buttock abscess and was admitted for further management CONSULTANTS: ID specialist Dr. Okeefe surgery Dr. Gamino [facility] COURSE: Patient undergone incision and drainage of the left buttock abscess on . Wound care provided as per surgeon recommendations . Patient was on IV antibiotics as per ID specialist recommendations. Blood culture were negative. Wound culture revealed MRSA. Pain management was addressed. Methadone was continued. Bowel regimen instituted. DVT prophylaxis provided. hall worker met with the patient to assist with the substance abuse services. According to patient, he was under methadone treatment program for nearly 20 years. Patient reported lapse of judgment when he injected himself with heroin. Patient reported having a strong support group at methadone clinic and at home. Patient was cleared for discharge , Patient was discharged home with home health services for wound care. Wound supplies provided. Antibiotics were changed to oral route to complete the course as recommended by ID specialist. FINAL DIAGNOSES: MRSA left buttock abscess and cellulitis s/p incision and drainage of deep left buttock abscess on 05/25 History of intravenous drug abuse Opiate dependency Chronic methadone user DISCHARGE MEDICATIONS: See Medication Reconciliation list. DISCHARGE INSTRUCTIONS: Patient was discharged home with home health services for wound care. Follow up with primary care provider in one week. I have been assigned to dictate discharge summary for this account. I was not involved in the patient's management. Gloria Simeon NP May 31, 2018 08:59
== END 2018-05-29 12:15 | disposition home health service (06) | DRG 501 ==
LOC: EMR 17:28 → 4E 22:15 → EEVIPCON 22:15 → EDBEDREQ 22:47 → 4E 05-27 11:44
PROC: 0K9P0ZZ Drainage of Left Hip Muscle, Open Approach (ICD-10-PCS; principal; 2018-05-25)
DX: M60.08 Infective myositis, other site (principal); F11.20 Opioid dependence, uncomplicated; L03.317 Cellulitis of buttock; B95.62 Methicillin resistant Staphylococcus aureus infection as the cause of diseases classified elsewhere; Z88.0 Allergy status to penicillin
CPT/HCPCS: 36415; 80048; 80053; 80202; 83605; 85025; 86850; 86900; 86901; 87040; 87070; 87181; 87205; 90471; 90715; 93005; 96365; 96375; 99285; J2405